=== PATIENT | male | born 1955 | race Caucasian/White ===

== ENCOUNTER → 2024-06-04 | Day surgery (SDC) | payer MEDICARE ==
[~2024-06-04] MED LIST: ACETAMINOPHEN 1000 MG/100 ML 100 ML IV ONE; AMLODIPINE BESYL5 MG PO; CEFAZOLIN SODIUM 2 GM ONE; DEXAMETHASONE SOD PHOS INJ 4 MG/ML SDV ONE; FENTANYL CITRATE/PF 100MCG/2 ML INJ ONE; GABAPENTIN ER300 MG PO; GLIPIZIDE5 MG PO; LACTATED RINGER'S 1,000 ML ONE; LIDOCAINE HCL 2% LOCAL INJ 5 ML SDV VIAL INJ ONE; ONDANSETRON HCL INJ 2MG/ML 2ML 2 MG/ML VIAL ONE; PROPOFOL IV EMULSION 10 MG/ML 20 ML VIAL ONE
[2024-06-04 06:47] LABS: BASOPHILS # (AUTO) 0.1 (0.0-0.1); BASOPHILS % 0.4 % (0.0-1.0); EOSINOPHILS # (AUTO) 0.4 (0.0-0.4); EOSINOPHILS % 2.8 % (0.0-6.0); HEMATOCRIT 46.4 % (38.2-49.6); LYMPHOCYTES % 14.7 % (18.0-39.1); MEAN CORPUSCULAR HEMOGLOBIN 32.3 pg (28-32); MEAN CORPUSCULAR HGB CONC 32.3 g/dL (31-35); MONOCYTES # (AUTO) 0.9 (0.2-0.8); MONOCYTES % 6.6 % (4.4-11.3); NEUTROPHILS # (AUTO) 10.3 (2.1-6.9); NEUTROPHILS % 75.1 % (38.7-80.0); PLATELET COUNT 215 x10e3/uL (140-360); RED BLOOD COUNT 4.64 x10e6/uL (4.3-5.7); RED CELL DISTRIBUTION WIDTH 11.9 % (11.7-14.4); WHITE BLOOD COUNT 13.71 x10e3/uL (4.8-10.8)
[2024-06-04 07:13] LABS: CALCIUM 10.1 mg/dL (8.4-10.2); CREATININE, SERUM 1.12 mg/dL (0.72-1.25)
[2024-06-04 09:40] VITALS: BP 117/68; PULSE 79; RESP 18; O2SAT 97
== END | disposition home or self-care (01) ==
LOC: OR 05:46
PROVIDERS: ATTEND Podiatrist
DX: M86.9 Osteomyelitis, unspecified (principal); E11.9 Type 2 diabetes mellitus without complications; I10 Essential (primary) hypertension; E78.5 Hyperlipidemia, unspecified; Z88.8 Allergy status to other drugs, medicaments and biological substances; Z79.84 Long term (current) use of oral hypoglycemic drugs; Z79.899 Other long term (current) drug therapy
CPT/HCPCS: 28825; 36415; 71046; 80048; 85025; 88305; 88311; 93005; J0131; J0690; J1100; J2003; J2405; J2704; J3010; J7121; 88304

== ENCOUNTER 2024-10-10 13:12 | Inpatient (IN) | payer MEDICARE ==
[~2024-10-10] VITALS: Ht 177.8 cm; Wt 90.7 kg
[~2024-10-10 13:12] MED LIST changes: -ACETAMINOPHEN 1000 MG/100 ML 100 ML IV ONE; -CEFAZOLIN SODIUM 2 GM ONE; -DEXAMETHASONE SOD PHOS INJ 4 MG/ML SDV ONE; -FENTANYL CITRATE/PF 100MCG/2 ML INJ ONE; -LACTATED RINGER'S 1,000 ML ONE; -LIDOCAINE HCL 2% LOCAL INJ 5 ML SDV VIAL INJ ONE; -ONDANSETRON HCL INJ 2MG/ML 2ML 2 MG/ML VIAL ONE; -PROPOFOL IV EMULSION 10 MG/ML 20 ML VIAL ONE
[2024-10-10] MEDS ORDERED: PHENYLEPHRINE HCL 1% 10 MG/ML VIAL ONE (13:31)
[2024-10-10 15:00] VITALS: PULSE 82; RESP 17; TEMP 98.2
[2024-10-10 15:08] LABS: BASOPHILS % 0.3 % (0.0-1.0); EOSINOPHILS # (AUTO) 0.3 (0.0-0.4); EOSINOPHILS % 2.5 % (0.0-6.0); HEMATOCRIT 41.7 % (38.2-49.6); HEMOGLOBIN 14.2 g/dL (14.0-18.0); LYMPHOCYTES # (AUTO) 1.3 (1.0-3.2); LYMPHOCYTES % 10.7 % (18.0-39.1); MEAN CORPUSCULAR HGB CONC 34.1 g/dL (31-35); MONOCYTES % 7.7 % (4.4-11.3); NEUTROPHILS # (AUTO) 9.7 (2.1-6.9); NEUTROPHILS % 78.6 % (38.7-80.0); PLATELET COUNT 255 x10e3/uL (140-360); RED BLOOD COUNT 4.58 x10e6/uL (4.3-5.7); RED CELL DISTRIBUTION WIDTH 12.7 % (11.7-14.4)
[2024-10-10 15:17] LABS: INR 0.97; PROTHROMBIN TIME 13.5 seconds (11.9-14.5)
[2024-10-10 15:18] LABS: PARTIAL THROMBOPLASTIN TIME 29.4 seconds (23.8-35.5)
[2024-10-10 15:22] LABS: ALBUMIN 3.6 g/dL (3.5-5.0); ANION GAP 13.4 mmol/L (8-16); BILIRUBIN,TOTAL 0.6 mg/dL (0.2-1.2); CREATININE, SERUM 1.13 mg/dL (0.72-1.25); MAGNESIUM 1.9 MG/DL (1.3-2.1); POTASSIUM 4.4 mmol/L (3.5-5.1); TOTAL PROTEIN 7.3 g/dL (6.5-8.1)
[2024-10-10] MEDS ORDERED: ONDANSETRON HCL INJ 2MG/ML 2ML 2 MG/ML VIAL IV PRN (16:00)
[2024-10-10 17:30] VITALS: BP 132/73; PULSE 80; RESP 18; TEMP 98.1; O2SAT 100
[2024-10-10] MEDS: SODIUM CHLORIDE 0.9% 1000ML 1,000 ML IV SCH (18:13)
[2024-10-10] MEDS: Vancomycin IV 1 GM in SODIUM CHLORIDE 0.9% 250ML 250 ML IV SCH (19:02)
[2024-10-10 19:32] VITALS: BP 132/73; PULSE 80; RESP 18; TEMP 98.1; O2SAT 100
[2024-10-10] MEDS ORDERED: CIPRO500 MG/5 M PO (20:23)
[2024-10-10] MEDS ORDERED: ROSUVASTATIN CA10 MG PO (20:23)
[2024-10-10 20:48] LABS: TROPONIN I 0.012 ng/mL (0-0.300)
[2024-10-11] VITALS (9 sets, daily range): BP systolic 126–176; BP diastolic 74–100; PULSE 68–83; RESP 18–20; TEMP 97.6–98.2; O2SAT 100
[2024-10-11 02:34] LABS: TROPONIN I 0.017 ng/mL (0-0.300)
[2024-10-11 06:35] LABS: BASOPHILS # (AUTO) 0.1 (0.0-0.1); BASOPHILS % 0.7 % (0.0-1.0); EOSINOPHILS # (AUTO) 0.5 (0.0-0.4); HEMATOCRIT 37.6 % (38.2-49.6); HEMOGLOBIN 12.8 g/dL (14.0-18.0); LYMPHOCYTES % 20.4 % (18.0-39.1); MEAN CORPUSCULAR HEMOGLOBIN 31.3 pg (28-32); MEAN CORPUSCULAR VOLUME 91.9 fL (81-99); MONOCYTES # (AUTO) 0.9 (0.2-0.8); MONOCYTES % 8.7 % (4.4-11.3); NEUTROPHILS # (AUTO) 6.4 (2.1-6.9); NEUTROPHILS % 64.7 % (38.7-80.0); PLATELET COUNT 240 x10e3/uL (140-360); RED BLOOD COUNT 4.09 x10e6/uL (4.3-5.7); RED CELL DISTRIBUTION WIDTH 12.6 % (11.7-14.4); WHITE BLOOD COUNT 9.88 x10e3/uL (4.8-10.8)
[2024-10-11 06:48] LABS: ALBUMIN 2.9 g/dL (3.5-5.0); ALBUMIN/GLOBULIN RATIO 0.9 (0.8-2.0); ANION GAP 13.7 mmol/L (8-16); BILIRUBIN,TOTAL 0.7 mg/dL (0.2-1.2); CALCIUM 8.8 mg/dL (8.4-10.2); CREATININE, SERUM 0.99 mg/dL (0.72-1.25); POTASSIUM 3.7 mmol/L (3.5-5.1); TOTAL PROTEIN 6.2 g/dL (6.5-8.1)
[2024-10-11 07:47] LABS: TROPONIN I 0.02 ng/mL (0-0.300)
[2024-10-12] VITALS (7 sets, daily range): BP systolic 137–173; BP diastolic 73–92; PULSE 69–85; RESP 18–20; TEMP 97.5–98.3; O2SAT 100
[2024-10-12] MEDS: MUPIROCIN 2% OINT 22 GM TUBE TOP SCH (09:03)
[2024-10-12] MEDS: AMLODIPINE BESYLATE 5 MG TAB PO SCH (16:48)
[2024-10-12] MEDS: DOXAZOSIN MESYLATE 2 MG TAB PO SCH (16:59)
[2024-10-12] MEDS: CRESTOR 10MG PO SCH (21:13)
[2024-10-13] VITALS (8 sets, daily range): BP systolic 123–146; BP diastolic 54–80; PULSE 73–91; RESP 18–20; TEMP 97.1–98.4; O2SAT 98–100
[2024-10-13 05:59] LABS: BASOPHILS # (AUTO) 0.1 (0.0-0.1); BASOPHILS % 0.6 % (0.0-1.0); EOSINOPHILS # (AUTO) 0.6 (0.0-0.4); HEMATOCRIT 38.6 % (38.2-49.6); HEMOGLOBIN 13.3 g/dL (14.0-18.0); LYMPHOCYTES # (AUTO) 2.4 (1.0-3.2); LYMPHOCYTES % 20.7 % (18.0-39.1); MEAN CORPUSCULAR HEMOGLOBIN 31.4 pg (28-32); MEAN CORPUSCULAR HGB CONC 34.5 g/dL (31-35); MONOCYTES % 8.6 % (4.4-11.3); NEUTROPHILS # (AUTO) 7.5 (2.1-6.9); NEUTROPHILS % 64.8 % (38.7-80.0); PLATELET COUNT 240 x10e3/uL (140-360); RED BLOOD COUNT 4.24 x10e6/uL (4.3-5.7); RED CELL DISTRIBUTION WIDTH 12.1 % (11.7-14.4); WHITE BLOOD COUNT 11.61 x10e3/uL (4.8-10.8)
[2024-10-13 06:35] LABS: ANION GAP 13.8 mmol/L (8-16); CALCIUM 8.7 mg/dL (8.4-10.2); CREATININE, SERUM 1.02 mg/dL (0.72-1.25); POTASSIUM 3.8 mmol/L (3.5-5.1)
[2024-10-13 06:58] LABS: THYROID STIMULATING HORMONE 4.067 uIU/mL (0.350-4.940)
[2024-10-14] VITALS (8 sets, daily range): BP systolic 110–152; BP diastolic 64–84; PULSE 72–94; RESP 17–20; TEMP 97.5–98.6; O2SAT 99–100
[2024-10-14] MEDS: Vancomycin IV 1 GM in SODIUM CHLORIDE 0.9% 250ML 250 ML IV SCH (20:58)
[2024-10-15] VITALS (8 sets, daily range): BP systolic 99–148; BP diastolic 58–86; PULSE 74–96; RESP 18–20; TEMP 97.3–97.9; O2SAT 95–100
[2024-10-15 05:44] LABS: BASOPHILS # (AUTO) 0.1 (0.0-0.1); BASOPHILS % 0.9 % (0.0-1.0); EOSINOPHILS # (AUTO) 0.5 (0.0-0.4); EOSINOPHILS % 5.1 % (0.0-6.0); HEMATOCRIT 38.3 % (38.2-49.6); HEMOGLOBIN 12.8 g/dL (14.0-18.0); LYMPHOCYTES # (AUTO) 1.5 (1.0-3.2); LYMPHOCYTES % 17.1 % (18.0-39.1); MEAN CORPUSCULAR HEMOGLOBIN 31.2 pg (28-32); MEAN CORPUSCULAR HGB CONC 33.4 g/dL (31-35); MEAN CORPUSCULAR VOLUME 93.4 fL (81-99); MONOCYTES # (AUTO) 0.7 (0.2-0.8); MONOCYTES % 8.3 % (4.4-11.3); NEUTROPHILS % 68.1 % (38.7-80.0); PLATELET COUNT 222 x10e3/uL (140-360); RED CELL DISTRIBUTION WIDTH 11.9 % (11.7-14.4); WHITE BLOOD COUNT 8.78 x10e3/uL (4.8-10.8)
[2024-10-15 06:07] LABS: INR 1.01; PARTIAL THROMBOPLASTIN TIME 29.8 seconds (23.8-35.5); PROTHROMBIN TIME 13.9 seconds (11.9-14.5)
[2024-10-15 06:17] LABS: ANION GAP 11.7 mmol/L (8-16); CALCIUM 8.6 mg/dL (8.4-10.2); CREATININE, SERUM 0.91 mg/dL (0.72-1.25); POTASSIUM 3.7 mmol/L (3.5-5.1)
[2024-10-15] MEDS ORDERED: LIDOCAINE HCL 2% LOCAL INJ 5 ML SDV VIAL INJ ONE (10:28)
[2024-10-15] MEDS ORDERED: FENTANYL CITRATE/PF 100MCG/2 ML INJ ONE (10:28)
[2024-10-15] MEDS ORDERED: PROPOFOL IV EMULSION 10 MG/ML 20 ML VIAL ONE (10:29)
[2024-10-15] MEDS ORDERED: ACETAMINOPHEN 1000 MG/100 ML 100 ML IV ONE (12:29)
[2024-10-15] MEDS ORDERED: SEVOFLURANE INHAL SOLN 250 ML PEN BTL ONE (12:29)
[2024-10-15] MEDS ORDERED: DEXAMETHASONE SOD PHOS INJ 4 MG/ML SDV ONE (12:31)
[2024-10-15] MEDS ORDERED: ONDANSETRON HCL INJ 2MG/ML 2ML 2 MG/ML VIAL ONE (12:31)
[2024-10-15] MEDS ORDERED: EPHEDRINE SULFATE INJ 50 MG/ML VIAL ONE (13:11)
[2024-10-16] VITALS (8 sets, daily range): BP systolic 134–161; BP diastolic 77–87; PULSE 85–94; RESP 18; TEMP 97.5–98.2; O2SAT 98–100
[2024-10-16 05:42] LABS: BASOPHILS % 0.2 % (0.0-1.0); EOSINOPHILS % 0.1 % (0.0-6.0); HEMATOCRIT 38.1 % (38.2-49.6); HEMOGLOBIN 13.1 g/dL (14.0-18.0); LYMPHOCYTES # (AUTO) 1.3 (1.0-3.2); LYMPHOCYTES % 14.8 % (18.0-39.1); MEAN CORPUSCULAR HGB CONC 34.4 g/dL (31-35); MEAN CORPUSCULAR VOLUME 90.1 fL (81-99); MONOCYTES # (AUTO) 0.6 (0.2-0.8); MONOCYTES % 6.2 % (4.4-11.3); NEUTROPHILS # (AUTO) 6.9 (2.1-6.9); NEUTROPHILS % 78.4 % (38.7-80.0); PLATELET COUNT 230 x10e3/uL (140-360); RED BLOOD COUNT 4.23 x10e6/uL (4.3-5.7); RED CELL DISTRIBUTION WIDTH 11.9 % (11.7-14.4); WHITE BLOOD COUNT 8.84 x10e3/uL (4.8-10.8)
[2024-10-16 06:13] LABS: ANION GAP 12.6 mmol/L (8-16); CALCIUM 8.7 mg/dL (8.4-10.2); POTASSIUM 3.6 mmol/L (3.5-5.1)
[2024-10-17] VITALS (8 sets, daily range): BP systolic 139–149; BP diastolic 72–80; PULSE 73–93; RESP 18; TEMP 97.5–98.1; O2SAT 99–100
[2024-10-18] VITALS (8 sets, daily range): BP systolic 112–156; BP diastolic 50–83; PULSE 82–88; RESP 20; TEMP 97.6–98.1; O2SAT 98–100
[2024-10-18] MEDS: MEROPENEM 1 GM in SODIUM CHLORIDE 0.9% 100 ML IV SCH (14:22)
[2024-10-19] VITALS (7 sets, daily range): BP systolic 122–152; BP diastolic 62–78; PULSE 68–91; RESP 18–20; TEMP 97.5–98.2; O2SAT 100
[2024-10-20] VITALS (7 sets, daily range): BP systolic 120–134; BP diastolic 63–77; PULSE 67–89; RESP 16–21; TEMP 97.6–98.1; O2SAT 100
[2024-10-21] VITALS (7 sets, daily range): BP systolic 112–137; BP diastolic 63–78; PULSE 76–84; RESP 19–20; TEMP 97.7–97.8; O2SAT 100
[2024-10-21] MEDS ORDERED: SODIUM CHLORIDE 0.9% 100 ML ONE (21:57)
[2024-10-22] VITALS: BP 134/70; PULSE 84; RESP 20; TEMP 98.1; O2SAT 100
[2024-10-22 04:00] VITALS: BP 102/63; PULSE 66; RESP 20; TEMP 97.6; O2SAT 100
[2024-10-22 09:10] VITALS: BP 125/57; PULSE 87; RESP 18; TEMP 98; O2SAT 99
[2024-10-22 09:12] VITALS: BP 125/57; PULSE 87; RESP 18; TEMP 98; O2SAT 99
[2024-10-22 12:00] VITALS: BP 128/65; PULSE 87; RESP 18; TEMP 97.6; O2SAT 100
[2024-10-22] MEDS ORDERED: CARDURA2 MG PO (13:00)
== END 2024-10-22 15:05 | disposition home health service (06) | DRG 617 ==
LOC: ER 14:18 → ERHOLD 15:55 → MED/SURG3 17:15
PROVIDERS: ADMIT Internal Medicine; ATTEND Internal Medicine
PROC: 0JXR0ZB Transfer Left Foot Subcutaneous Tissue and Fascia with Skin and Subcutaneous Tissue, Open Approach (ICD-10-PCS; 2024-10-15)
PROC: 0Y6M0ZF Detachment at Right Foot, Partial 5th Ray, Open Approach (ICD-10-PCS; principal; 2024-10-15 12:19)
PROC: 02HV33Z Insertion of Infusion Device into Superior Vena Cava, Percutaneous Approach (ICD-10-PCS; 2024-10-18)
PROC: B548ZZA Ultrasonography of Superior Vena Cava, Guidance (ICD-10-PCS; 2024-10-18)
DX: E11.621 Type 2 diabetes mellitus with foot ulcer (principal); L97.416 Non-pressure chronic ulcer of right heel and midfoot with bone involvement without evidence of necrosis; M86.8X7 Other osteomyelitis, ankle and foot; E11.69 Type 2 diabetes mellitus with other specified complication; B96.5 Pseudomonas (aeruginosa) (mallei) (pseudomallei) as the cause of diseases classified elsewhere; E11.51 Type 2 diabetes mellitus with diabetic peripheral angiopathy without gangrene; I70.234 Atherosclerosis of native arteries of right leg with ulceration of heel and midfoot; I70.202 Unspecified atherosclerosis of native arteries of extremities, left leg; E11.42 Type 2 diabetes mellitus with diabetic polyneuropathy; Z79.84 Long term (current) use of oral hypoglycemic drugs; I10 Essential (primary) hypertension; Z89.422 Acquired absence of other left toe(s); Z89.421 Acquired absence of other right toe(s); Z79.899 Other long term (current) drug therapy
CPT/HCPCS: 36415; 36569; 71045; 80048; 80053; 80202; 82550; 82948; 83036; 83735; 84443; 84484; 85025; 85610; 85730; 87071; 87075; 87186; 87205; 88304; 88305; 88311; 93925; 99284; J1100; J2003; J2185; J2371; J2405; J2543; J7030; J7050